=== PATIENT | female | born 1985 | race Caucasian/White ===

== ENCOUNTER 2019-04-25 08:22 | Emergency (ER) | payer SELFPAY ==
[2019-04-25 08:24] VITALS: BP 120/78; PULSE 78; RESP 18; TEMP 36.7; O2SAT 98; BMI 31.6
--- NOTE | 2019-04-25 08:45 | [facility].EDGENADL ---
ED Disposition Clinical Impression: Exposure to gonorrhea Disposition: Home, Self-Care Condition on Discharge: Good Instructions: Facts About Sexually Transmitted Infections, Chlamydia: The Silent STD, How to Detect and Treat STDs Additional Instructions: Go to the health department as soon as possible for further testing and evaluation. Return to the emergency department immediately if symptoms manifest themselves. Referrals: Provider,Brandee, [Primary Care Provider] - Time of Disposition: 08:50 - Critical Care Critical Care Time: No Attestation: On , the high probability of a clinically significant, sudden or life threatening deterioration of the following system(s) required my full and direct attention, intervention and personal management. The time I documented below is in addition to time spent performing reported procedures but includes the following listed in this critical care notation. Medical Decision Making - Medical Records Medical records reviewed: Yes: I reviewed the patient's medical records. - Anjel Inquiry Pt receiving controlled substance: No Vital Signs: 04/25/19 08:24 Temperature 98.1 F Temperature Source Oral Pulse Rate [Right] 78 Respiratory Rate 18 Blood Pressure [Right Arm] 120/78 Blood Pressure Mean [Right Arm] 92 02 Sat by Pulse Oximetry 98 General Adult HPI - General Chief complaint: Urogenital-Female Stated complaint: Possible STD Time Seen by Provider: 04/25/19 08:30 Mode of Arrival: Ambulatory Limitations: No Limitations Description of Symptoms (Recalled from ER Triage Doc. by RN): States she wishes to be checked for an STD, denies any s/s. - History of Present Illness HPI narrative: 33-year old female has come in with her sexual partner who has penile discharge. She reports that she is asymptomatic. The partner manifests his symptoms. Onset (ago): unknown Associated symptoms: denies other symptoms Treatments prior to arrival: none [facility] History - Hepatitis A Screen Drug use history?: No High risk sexual behaviors?: No History of sexually transmitted infection?: No Currently employed?: No Childcare worker?: No Do you have indoor plumbing?: Yes Do you have electricity?: Yes Attestation statement:: This patient has been screened for Hepatitis A risk factors. I have reviewed the patient's past medical history: Yes ROS Obtained: Yes Systems reviewed as appropriate & no additional complaints - Constitutional Constitutional: Reports system reviewed and no additional complaints, except as docu - Eyes Eyes: Reports system reviewed and no additional complaints, except as docu - ENT Ears, Nose, Mouth, and Throat: Reports system reviewed and no additional complaints, except as docu - Cardiovascular Cardiovascular: Reports system reviewed and no additional complaints, except as docu - Respiratory Respiratory: Yes system reviewed and no additional complaints, except as docu - Gastrointestinal Gastrointestingal: Reports: system reviewed and no additional complaints, except as docu - Genitourinary Female Genitourinary: Reports system reviewed and no additional complaints, except as docu - Musculoskeletal Musculoskeletal: Reports system reviewed and no additional complaints, except as docu - Integumentary/Breasts Skin/Breast: Reports system reviewed and no additional complaints, except as docu - Neurologic Neurologic: Reports system reviewed and no additional complaints, except as docu - Endocrine Endocrine: Reports system reviewed and no additional complaints, except as docu - Hematologic/Lymphatic Henatologic/Lymphatic: Reports system reviewed and no additional complaints, except as docu - Allergic/Immunologic Allergic/Immunologic: Reports system reviewed and no additional complaints, except as docu Physical Exam - General General appearance: alert, in no apparent distress - Head Head exam: atraumatic, normocephalic, ricarda
[2019-04-25 09:13] VITALS: BP 127/89; PULSE 78; RESP 18; TEMP 36.9; O2SAT 98
== END 2019-04-25 09:30 | disposition home or self-care (01) ==
PROVIDERS: Emergency Provider Emergency Medicine
DX: Z20.2 Contact with and (suspected) exposure to infections with a predominantly sexual mode of transmission (principal)
CPT/HCPCS: 96372; 99281